=== PATIENT | male | born 1940 | race Caucasian/White ===

== ENCOUNTER → 2019-07-02 | Outpatient (CLI) | payer MEDICARE ==
[2019-07-02 13:14] LABS: Basophils # (A) 0.1 k/uL (0-0.2); Basophils % (A) 1 %; Eosinophils # (A) 0.2 k/uL (0-0.7); Eosinophils % (A) 2 %; HCT 44.3 % (39.0-53.0); HGB 14.1 gm/dL (13.0-17.5); Lymphocytes # (A) 2.2 k/uL (1.0-4.8); Lymphocytes % (A) 22 %; MCH 28.5 pg (25.0-35.0); MCHC 31.8 g/dL (31.0-37.0); MCV 89.7 fL (80.0-100.0); Mean Platelet Volume 6.5; Monocytes # (A) 0.7 k/uL (0-1.0); Monocytes % (A) 7 %; Neutrophils # (A) 6.5 k/uL (1.3-7.7); Neutrophils % (A) 65 %; Platelet Count 212 k/uL (150-450); RBC 4.94 m/uL (4.30-5.90); RDW 14.6 % (11.5-15.5)
[2019-07-02 19:19] LABS: African American GFR (CKD) 65.8 (60.0-200.0); Albumin 4.5 g/dL (3.80-4.90); Albumin/Globulin Ratio 2.25 (1.60-3.17); Anion Gap 5.8 mmol/L (4.00-12.00); BUN/Creat Ratio 40.83 Ratio (12.00-20.00); Calcium 10.1 mg/dL (8.7-10.3); Carbon Dioxide 27.2 mmol/L (21.6-31.8); Potassium 5.8 mmol/L (3.5-5.5); Total Bilirubin 0.8 mg/dL (0.3-1.2); Total Protein 6.5 g/dL (6.2-8.2)
== END | disposition home or self-care (01) ==
LOC: LABWHC1 12:22
PROVIDERS: ATTEND Podiatrist
DX: E11.622 Type 2 diabetes mellitus with other skin ulcer (principal); L97.919 Non-pressure chronic ulcer of unspecified part of right lower leg with unspecified severity
CPT/HCPCS: 36415; 80053; 84134; 85025

== ENCOUNTER 2019-09-09 20:31 | Emergency (ER) | payer MEDICARE ==
[2019-09-09 22:33] LABS: Basophils # (A) 0.1 k/uL (0-0.2); Basophils % (A) 2 %; Eosinophils # (A) 0.2 k/uL (0-0.7); Eosinophils % (A) 3 %; HCT 41.8 % (39.0-53.0); HGB 13.6 gm/dL (13.0-17.5); Hypochromasia Slight; Lymphocytes # (A) 1.9 k/uL (1.0-4.8); Lymphocytes % (A) 19 %; MCHC 32.5 g/dL (31.0-37.0); MCV 89.4 fL (80.0-100.0); Mean Platelet Volume 7.8; Monocytes # (A) 0.7 k/uL (0-1.0); Monocytes % (A) 8 %; Neutrophils # (A) 6.4 k/uL (1.3-7.7); Neutrophils % (A) 67 %; Platelet Count 239 k/uL (150-450); RBC 4.68 m/uL (4.30-5.90); RDW 14.2 % (11.5-15.5); WBC 9.6 k/uL (3.8-10.6)
--- NOTE | 2019-09-09 22:40 | XR ---
EXAMINATION TYPE: XR chest 2V DATE OF EXAM: 09/09/2019 COMPARISON: NONE HISTORY: Difficulty breathing TECHNIQUE: FINDINGS: There is some pulmonary interstitial edema. There is mild blunting of the costophrenic angl es. Thoracic aorta is atheromatous. There is spurring in the thoracic spine. IMPRESSION: Small pleural effusions and mild pulmonary interstitial edema. 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 There is probably mild heart failure.
[2019-09-09 22:42] LABS: Potassium 4.8 mmol/L (3.5-5.1); Total Bilirubin 0.5 mg/dL (0.2-1.3); Total Protein 6.6 g/dL (6.3-8.2)
[2019-09-09 22:43] LABS: INR 0.9 (<1.2); Partial Thromboplastin Time 24.6 sec (22.0-30.0); Prothrombin Time 10.1 sec (9.0-12.0)
[2019-09-10] MEDS ORDERED: FUROSEMIDE 10 MG/ML 4 ML VIAL IV STA (01:07)
--- NOTE | 2019-09-10 01:07 | ED ---
General Adult HPI <Kelby Do - Last Filed: 09/10/19 06:23> - General Source: patient Mode of arrival: ambulatory Limitations: no limitations <Cass Hernandez - Last Filed: 09/10/19 18:08> - General Chief complaint: Shortness of Breath Stated complaint: MARC Time Seen by Provider: 09/09/19 20:58 - History of Present Illness Initial comments: 78-year-old male patient presents to the emergency department today for evaluation of shortness of breath. Patient states that throughout the day today and some of yesterday he was experiencing shortness of breath at rest. Patient states he feels winded even though he is not doing much activity. Patient states that he generally has shortness of breath with activity. He is also had a chronic cough with white sputum production. Denies any history of congestive heart failure or COPD. Denies any chest pain, nausea, or vomiting. Denies any dizziness or weakness. Patient denies any recent rash, fever, chills, abdominal pain, diarrhea, constipation, back pain, numbness, tingling, hematuria, dysuria, urinary urgency, urinary frequency, headache, visual changes, or any other complaints. (Cass Hernandez) - Related Data Previous Rx's Medication Instructions Recorded Furosemide [Lasix] 20 mg PO DAILY #4 tab 09/10/19 Allergies Allergy/AdvReac Type Severity Reaction Status Date / Time acetaminophen [From Percocet] Allergy Nausea & Verified 09/09/19 20:53 Vomiting oxycodone [From Percocet] Allergy Nausea & Verified 09/09/19 20:53 Vomiting Review of Systems ROS Other: All systems not noted in ROS Statement are negative. <Kelby Do - Last Filed: 09/10/19 06:23> ROS Other: All systems not noted in ROS Statement are negative. <Cass Hernandez - Last Filed: 09/10/19 18:08> ROS Statement: Those systems with pertinent positive or pertinent negative responses have been documented in the HPI. Past Medical History Past Medical History: Diabetes Mellitus, Hyperlipidemia, Hypertension History of Any Multi-Drug Resistant Organisms: None Reported Additional Past Surgical History / Comment(s): cataracts Past Psychological History: No Psychological Hx Reported Smoking Status: Former smoker Past Alcohol Use History: None Reported Past Drug Use History: None Reported <Cass Hernandez - Last Filed: 09/10/19 18:08> General Exam Limitations: no limitations General appearance: alert, in no apparent distress, other (This is a well- developed, well-nourished elderly male patient in no acute distress. Vital signs upon presentation are temperature 98.1F, pulse 77, respirations 22, blood pressure 196/72, pulse ox 96% on room air.) Eye exam: Present: normal appearance, PERRL, EOMI. Absent: scleral icterus, conjunctival injection, periorbital swelling ENT exam: Present: normal exam, normal oropharynx, mucous membranes moist Respiratory exam: Present: rales (At the bases). Absent: respiratory distress, wheezes, rhonchi, stridor Cardiovascular Exam: Present: regular rate, normal rhythm, normal heart sounds. Absent: systolic murmur, diastolic murmur, rubs, gallop, clicks GI/Abdominal exam: Present: soft, normal bowel sounds. Absent: distended, tenderness, guarding, rebound, rigid Neurological exam: Present: alert, oriented X3, CN II-XII intact Psychiatric exam: Present: normal affect, normal mood Skin exam: Present: warm, dry, intact, normal color. Absent: rash <Cass Hernandez M - Last Filed: 09/10/19 18:08> Course Vital Signs 09/09/19 09/09/19 09/09/19 20:49 21:53 22:30 Temperature 98.1 F Pulse Rate 77 72 72 Respiratory 22 20 20 Rate Blood Pressure 196/72 163/73 O2 Sat by Pulse 96 95 97 Oximetry 09/10/19 09/10/19 09/10/19 01:00 02:00 02:39 Temperature Pulse Rate 61 78 89 Respiratory 18 19 25 H Rate Blood Pressure 151/61 143/76 183/74 O2 Sat by Pulse 98 96 93 L Oximetry 09/10/19 09/10/19 09/10/19 03:00 03:30 04:00 Temperature Pulse Rate 61 63 Respiratory 19 20 Rate Blood Pressure 137/55 136/64 O2 Sat by Pulse 98 97 96 Oximetry 09/10/19 06:57 Temperature 98 F Pulse Rate 65 Respiratory 18 Rate Blood Pressure 143/59 O2 Sat by Pulse 96 Oximetry EKG Findings - EKG Comments: EKG Findings:: EKG obtained at 2215 shows normal sinus rhythm with a ventricular rate of 83, NC interval 178, QRS duration 106, QT 374, QTC 439. <Cass Hernandez - Last Filed: 09/10/19 18:08> Medical Decision Making - Lab Data Result diagrams: 09/09/19 22:07 09/09/19 22:07 <Kelby Do - Last Filed: 09/10/19 06:23> - Lab Data Result diagrams: 09/09/19 22:07 09/09/19 22:07 - Radiology Data Radiology results: report reviewed, image reviewed <MaryCass Lisa - Last Filed: 09/10/19 18:08> - Medical Decision Making 78-year-old male patient presented to the emergency department today for ev aluation of dyspnea at rest. Physical examination did reveal rales at the bases of his lungs. Vital signs were satisfactory with oxygen saturation between 93- 96% on room air. Chest x-ray did reveal bilateral pleural effusion with possible heart failure. BNP was 250. Patient is given IV dose of Lasix. Plan was for admission, case was discussed with Dr. Leblanc from [facility] physician group. Plan was formed for outpatient management. Case was discussed and care handed off to Dr. Do at 0430. Review of chart shows discharge with prescription for lasix. Follow up ordered for cardiology and pulmonology. (Cass Hernandez) - Lab Data Lab Results 09/09/19 09/09/19 09/09/19 Range/Units 22:07 22:07 22:07 WBC 9.6 (3.8-10.6) k/uL RBC 4.68 (4.30-5.90) m/uL Hgb 13.6 (13.0-17.5) gm/dL Hct 41.8 (39.0-53.0) % MCV 89.4 (80.0-100.0) fL MCH 29.0 (25.0-35.0) pg MCHC 32.5 (31.0-37.0) g/dL RDW 14.2 (11.5-15.5) % Plt Count 239 (150-450) k/uL Neutrophils % 67 % Lymphocytes % 19 % Monocytes % 8 % Eosinophils % 3 % Basophils % 2 % Neutrophils # 6.4 (1.3-7.7) k/uL Lymphocytes # 1.9 (1.0-4.8) k/uL Monocytes # 0.7 (0-1.0) k/uL Eosinophils # 0.2 (0-0.7) k/uL Basophils # 0.1 (0-0.2) k/uL Hypochromasia Slight PT (9.0-12.0) sec INR (<1.2) APTT (22.0-30.0) sec Sodium 140 (137-145) mmol/L Potassium 4.8 (3.5-5.1) mmol/L Chloride 107 (98-107) mmol/L Carbon Dioxide 27 (22-30) mmol/L Anion Gap 6 mmol/L BUN 33 H (9-20) mg/dL Creatinine 1.44 H (0.66-1.25) mg/dL Est GFR (CKD-EPI)AfAm 53 (>60 ml/min/1.73 sqM) Est GFR (CKD-EPI)NonAf 46 (>60 ml/min/1.73 sqM) Glucose 144 H (74-99) mg/dL Calcium 10.0 (8.4-10.2) mg/dL Magnesium 2.0 (1.6-2.3) mg/dL Total Bilirubin 0.5 (0.2-1.3) mg/dL AST 29 (17-59) U/L ALT 21 (4-49) U/L Alkaline Phosphatase 98 (38-126) U/L Troponin I (0.000-0.034) ng/mL NT-Pro-B Natriuret Pep 251 pg/mL Total Protein 6.6 (6.3-8.2) g/dL Albumin 4.0 (3.5-5.0) g/dL 09/09/19 09/09/19 09/10/19 Range/Units 22:07 22:07 04:07 WBC (3.8-10.6) k/uL RBC (4.30-5.90) m/uL Hgb (13.0-17.5) gm/dL Hct (39.0-53.0) % MCV (80.0-100.0) fL MCH (25.0-35.0) pg MCHC (31.0-37.0) g/dL RDW (11.5-15.5) % Plt Count (150-450) k/uL Neutrophils % % Lymphocytes % % Monocytes % % Eosinophils % % Basophils % % Neutrophils # (1.3-7.7) k/uL Lymphocytes # (1.0-4.8) k/uL Monocytes # (0-1.0) k/uL Eosinophils # (0-0.7) k/uL Basophils # (0-0.2) k/uL Hypochromasia PT 10.1 (9.0-12.0) sec INR 0.9 (<1.2) APTT 24.6 (22.0-30.0) sec Sodium (137-145) mmol/L Potassium (3.5-5.1) mmol/L Chloride (98-107) mmol/L Carbon Dioxide (22-30) mmol/L Anion Gap mmol/L BUN (9-20) mg/dL Creatinine (0.66-1.25) mg/dL Est GFR (CKD-EPI)AfAm (>60 ml/min/1.73 sqM) Est GFR (CKD-EPI)NonAf (>60 ml/min/1.73 sqM) Glucose (74-99) mg/dL Calcium (8.4-10.2) mg/dL Magnesium (1.6-2.3) mg/dL Total Bilirubin (0.2-1.3) mg/dL AST (17-59) U/L ALT (4-49) U/L Alkaline Phosphatase (38-126) U/L Troponin I 0.015 0.014 (0.000-0.034) ng/mL NT-Pro-B Natriuret Pep pg/mL Total Protein (6.3-8.2) g/dL Albumin (3.5-5.0) g/dL - Radiology Data Two-view x-ray of the chest to two-view x-ray of the chest is obtained. Report is reviewed in its entirety. Impression by Dr. Omalley shows small pleural effusions and mild pulmonary interstitial edema. His underlying pulmonary fibrosis. There is probably mild heart failure. (Cass Hernandez) Disposition Is patient prescribed a controlled substance at d/c from ED?: No <Kelby Do - Last Filed: 09/10/19 06:23> <Cass Hernandez - Last Filed: 09/10/19 18:08> Clinical Impression: Congestive heart failure, Pleural effusion Disposition: HOME SELF-CARE Condition: Good Instructions (If sedation given, give patient instructions): Heart Failure (DC), Pleural Effusion (ED) Prescriptions: Furosemide [Lasix] 20 mg PO DAILY #4 tab Referrals: Javi Llamas MD [STAFF PHYSICIAN] - 1-2 days Nonstaff,Physician [Primary Care Provider] - 1-2 days Vonnie Patel MD [STAFF PHYSICIAN] - 1-2 days
[2019-09-10 06:58] VITALS: BP 143/59; PULSE 65; RESP 18; TEMP 98
== END 2019-09-10 07:19 | disposition home or self-care (01) ==
LOC: EC 20:31
DX: J90 Pleural effusion, not elsewhere classified (principal); I50.9 Heart failure, unspecified; Z87.891 Personal history of nicotine dependence; Z88.5 Allergy status to narcotic agent; Z88.6 Allergy status to analgesic agent
CPT/HCPCS: 36415 ×2; 93005; 83880; 80053; 83735; 84484 ×2; 85025; 85610; 85730; 71046; 99285; 96374; J1940